=== PATIENT | male | born 1950 | race African-American/Black ===

== ENCOUNTER 2022-03-10 09:56 | Emergency (ER) | payer MEDICARE, MEDICAID ==
[~2022-03-10] VITALS: Ht 170.2 cm; Wt 81.8 kg
[2022-03-10 11:27] VITALS: BP 162/97
[2022-03-10] MEDS ORDERED: CEPHALEXIN500 MG PO (11:36)
[2022-03-10] MEDS ORDERED: CLARITIN10 M2 PO ×2 (11:53→12:01)
[2022-03-10] MEDS ORDERED: LISINOPRIL20 M1 PO ×2 (11:53→12:01)
[2022-03-10] MEDS ORDERED: MELOXICAM7.5 MG PO (11:54)
[2022-03-10] MEDS ORDERED: ASPIRIN 81 LOW81 MG (11:55)
[2022-03-10] MEDS ORDERED: NITROGLYCERIN0.4 MG (11:55)
[2022-03-10] MEDS ORDERED: NORVASC10 M1 PO ×2 (11:55→12:01)
[2022-03-10] MEDS ORDERED: OMEPRAZOLE DR40 MG (11:56)
[2022-03-10] MEDS ORDERED: BACLOFEN10 MG PO (11:56)
[2022-03-10] MEDS ORDERED: FLONASE AL50 MCG/ACT (11:57)
[2022-03-10] MEDS ORDERED: TRAZODONE HCL50 MG PO (11:57)
[2022-03-10] MEDS ORDERED: GABAPENTIN800 MG PO ×2 (11:58→12:01)
[2022-03-10] MEDS ORDERED: OMEPRAZOLE DR40 MG PO (12:01)
== END 2022-03-10 11:41 | disposition home or self-care (01) ==
LOC: ED 09:56
PROC: 0HQEXZZ Repair Left Lower Arm Skin, External Approach (ICD-10-PCS; principal; 2022-03-10)
DX: S51.812A Laceration without foreign body of left forearm, initial encounter (principal); I10 Essential (primary) hypertension; W25.XXXA Contact with sharp glass, initial encounter; Y92.009 Unspecified place in unspecified non-institutional (private) residence as the place of occurrence of the external cause; Y99.9 Unspecified external cause status

== ENCOUNTER 2022-11-12 16:06 | Emergency (ER) | payer MEDICARE, MEDICAID ==
[~2022-11-12] VITALS: Ht 170.2 cm; Wt 77.1 kg
[~2022-11-12 16:06] MED LIST: ASPIRIN 81 LOW81 MG; BACLOFEN10 MG PO; CEPHALEXIN500 MG PO; CLARITIN10 M2 PO; FLONASE AL50 MCG/ACT; GABAPENTIN800 MG PO; LISINOPRIL20 M1 PO; MELOXICAM7.5 MG PO; NITROGLYCERIN0.4 MG; NORVASC10 M1 PO; OMEPRAZOLE DR40 MG; OMEPRAZOLE DR40 MG PO; TRAZODONE HCL50 MG PO
[2022-11-12 16:19] VITALS: BP 185/111
[2022-11-12 16:21] VITALS: BP 177/105
[2022-11-12 17:24] VITALS: BP 168/74
== END 2022-11-12 17:35 | disposition home or self-care (01) ==
LOC: ED 16:06
DX: A53.0 Latent syphilis, unspecified as early or late (principal); I10 Essential (primary) hypertension

== ENCOUNTER 2022-11-19 08:38 | Emergency (ER) | payer MEDICARE, MEDICAID ==
[~2022-11-19] VITALS: Ht 170.2 cm; Wt 77.6 kg
[2022-11-19 09:00] VITALS: BP 153/98
[2022-11-19 09:15] VITALS: BP 168/89
[2022-11-19 09:30] VITALS: BP 150/103
[2022-11-19 10:00] VITALS: BP 157/106
[2022-11-19 10:15] VITALS: BP 170/105
[2022-11-19 10:30] VITALS: BP 170/105
== END 2022-11-19 10:38 | disposition home or self-care (01) ==
LOC: ED 08:38
DX: A53.0 Latent syphilis, unspecified as early or late (principal); I10 Essential (primary) hypertension

== ENCOUNTER 2022-11-26 09:13 | Emergency (ER) | payer MEDICARE, MEDICAID ==
[~2022-11-26] VITALS: Ht 170.2 cm; Wt 76.8 kg
[2022-11-26 09:31] VITALS: BP 175/101
[2022-11-26 09:45] VITALS: BP 165/110
[2022-11-26] MEDS ORDERED: DOXY-CAPS100 MG PO (09:52)
[2022-11-26 09:59] VITALS: BP 165/110
== END 2022-11-26 10:03 | disposition home or self-care (01) ==
LOC: ED 09:13
DX: A53.0 Latent syphilis, unspecified as early or late (principal); I10 Essential (primary) hypertension

== ENCOUNTER 2022-12-17 19:31 | Emergency (ER) | payer MEDICARE, MEDICAID ==
[~2022-12-17] VITALS: Ht 170.2 cm; Wt 77.1 kg
[2022-12-17] VITALS (11 sets, daily range): BP systolic 115–140; BP diastolic 68–87
[~2022-12-17 19:31] MED LIST changes: +DOXY-CAPS100 MG PO
[2022-12-17] MEDS ORDERED: MAXZIDE-25MG1 COMBO PO (21:32)
[2022-12-17 22:11] LABS: BASO% 0.2 % (0-3); EOS% 0.1 % (0-8); HEMATOCRIT 40.6 % (39.0-50.0); HEMOGLOBIN 12.9 g/dl (14.0-18.0); IMMATURE GRANULOCYTES 0.2 % (0.0-5.0); MEAN CELL VOLUME 93.5 fL CALC (80.0-100.0); MEAN CORPUSCULAR HGB 29.7 pG CALC (26.0-32.0); MEAN CORPUSCULAR HGB CONC 31.8 g/dL CAL (32.0-36.0); MONO% 9.3 % (2-13); NEUT# 7.04 thou/uL (1.82-7.42); NEUT% 74.2 % (42-76); RED BLOOD COUNT 4.34 mill/uL (4.70-6.10); RED CELL DISTRI WIDTH 11.7 % (11.5-15.5)
[2022-12-17 22:22] LABS: ALBUMIN 4.1 g/dL (3.2-5.0); BILIRUBIN, TOTAL 0.5 mg/dL (0.2-1.3); CREATININE 1.6 mg/dL (0.7-1.3); POTASSIUM 3.9 mmol/l (3.5-5.1); TOTAL PROTEIN 7.9 g/dL (6.3-8.2)
[2022-12-17 22:26] LABS: URINE BILIRUBIN - DIPSTICK NEGATIVE (NEGATIVE); URINE BLOOD DIPSTICK MODERATE (NEGATIVE); URINE COLOR YELLOW; URINE GLUCOSE - DIPSTICK >=1000 mg/dL (NEGATIVE); URINE KETONE TRACE mg/dL (NEGATIVE); URINE LEUK ESTERASE NEGATIVE (NEGATIVE); URINE NITRITE - DIPSTICK NEGATIVE (Negative); URINE PROTEIN - DIPSTICK NEGATIVE (NEG-TRACE)
[2022-12-17 22:34] LABS: URINE RBC 0-2 RBC/hpf (0-5); URINE SQUAMOUS EPITHELIAL CELL FEW EPI/hpf (0-FEW)
[2022-12-18] VITALS: BP 126/76
[2022-12-18] MEDS ORDERED: OMNICEF300 M1 PO (00:06)
[2022-12-18 00:10] VITALS: BP 126/76
== END 2022-12-18 03:03 | disposition home or self-care (01) ==
LOC: ED 19:31
PROVIDERS: Emergency Medicine
DX: N39.0 Urinary tract infection, site not specified (principal); R81 Glycosuria; I10 Essential (primary) hypertension; Z20.822 Contact with and (suspected) exposure to COVID-19

== ENCOUNTER 2023-04-13 08:47 | Emergency (ER) | payer MEDICARE, MEDICAID ==
[~2023-04-13 08:47] MED LIST changes: +MAXZIDE-25MG1 COMBO PO; +OMNICEF300 M1 PO
== END 2023-04-13 09:30 | disposition left against medical advice (07) ==
LOC: CANPREER → ED 08:47 → LWOBS 09:00
DX: Z53.21 Procedure and treatment not carried out due to patient leaving prior to being seen by health care provider (principal)